=== PATIENT | female | born 1935 | race Caucasian/White ===

== ENCOUNTER 2022-01-08 10:10 | Emergency (ER) | payer MEDICARE, OTHER ==
[2022-01-08 10:16] VITALS: BP 121/68; PULSE 80; RESP 16; TEMP 97.1
[2022-01-08] MEDS ORDERED: KETOROLAC 15 MG/ML 1 ML VIAL IM STA (10:58)
--- NOTE | 2022-01-08 11:01 | ED ---
General Adult HPI - General Chief complaint: Back Pain/Injury Stated complaint: Back injury Time Seen by Provider: 01/08/22 10:50 Source: patient, RN notes reviewed, old records reviewed Mode of arrival: ambulatory Limitations: no limitations - History of Present Illness Initial comments: This is a well-appearing 86-year-old female presents ambulatory with complaints of low back pain. Patient states 2 hours ago she was backing down the stairs while dusting them and she missed the last 2 steps falling backward landing on her back. She states that the pain is like a dull ache. She does have a history of degenerative disc disease and had an x-ray on last week. She has no previous fractures. No bowel or bladder incontinence. No complaints of numbness or tingling. -: hour(s) (2) Location: back Radiation: non-radiation Severity scale (1-10): 8 Quality: aching, dull, other (tight) Consistency: constant Improves with: none Worsens with: movement (twisting movements) Treatments Prior to Arrival: none - Related Data Previous Rx's Medication Instructions Recorded Cyclobenzaprine [Flexeril] 5 mg PO TID PRN #15 tablet 01/08/22 Ibuprofen 400 mg PO Q8H PRN #30 tab 01/08/22 Lidocaine 5% Patch [Lidoderm] 1 patch TOPICAL DAILY 7 Days #7 01/08/22 patch Allergies Allergy/AdvReac Type Severity Reaction Status Date / Time No Known Allergies Allergy Verified 01/08/22 10:12 Review of Systems ROS Statement: Those systems with pertinent positive or pertinent negative responses have been documented in the HPI. ROS Other: All systems not noted in ROS Statement are negative. Past Medical History Past Medical History: No Reported History History of Any Multi-Drug Resistant Organisms: None Reported Past Surgical History: No Surgical Hx Reported Past Psychological History: No Psychological Hx Reported Smoking Status: Never smoker Past Alcohol Use History: None Reported Past Drug Use History: None Reported General Exam Limitations: no limitations General appearance: alert, in no apparent distress Head exam: Present: atraumatic Eye exam: Present: normal appearance. Absent: scleral icterus, conjunctival injection Neck exam: Present: full ROM. Absent: tenderness, meningismus Respiratory exam: Present: normal lung sounds bilaterally. Absent: respiratory distress, accessory muscle use Cardiovascular Exam: Present: regular rate, normal heart sounds Back exam: Present: normal inspection, full ROM, tenderness (Lumbar sacral spine), paraspinal tenderness (LS-spine). Absent: CVA tenderness (R), CVA tenderness (L), vertebral tenderness, rash noted Expanded Back exam: Absent: saddle anesthesia Neurological exam: Present: alert, oriented X3, normal gait Psychiatric exam: Present: normal affect, normal mood Skin exam: Present: warm, intact, normal color. Absent: rash, cyanosis, diaphoretic, petechiae, pallor Course Vital Signs 01/08/22 10:12 Temperature 97.1 F L Pulse Rate 80 Respiratory 16 Rate Blood Pressure 121/68 O2 Sat by Pulse 100 Oximetry Medical Decision Making - Medical Decision Making This is a very well-appearing active 86-year-old female. Patient stepped backwards missing 2 steps landing on her back. Patient is complaining of low back pain, paraspinal at LS-spine. X-ray shows no acute fractures. There is degenerative disc changes throughout the lumbar spine which patient is aware of and states seen on x-ray done last week by primary care. Patient was given a Toradol shot and states that she is getting much pain relief. She is ambulatory in the room with a steady gait. She was written a prescription for Lidoderm patches and Motrin. She was also given a description for Flexeril to be taken as needed and directed not to operate the vehicle or drink alcohol when taking this medication as it can cause drowsiness, fatigue and blurred vision. She is agreeable to this plan of care. Case discussed with Dr. Sebastian Disposition Clinical Impression: Musculoskeletal back pain Disposition: HOME SELF-CARE Condition: Good Instructions (If sedation given, give patient instructions): Acute Low Back Pain (ED) Additional Instructions: Take Motrin as prescribed, increase your fluid intake, and use the Lidoderm patches as prescribed for pain relief. You can use the Flexeril as needed but do not drive or operate heavy machinery or drink alcohol when taking this medication. Follow-up with the primary care doctor next week. Return to the emergency room with any new or concerning symptoms including weakness in lower extremities, or incontinence of bowel or bladder. Prescriptions: Cyclobenzaprine [Flexeril] 5 mg PO TID PRN #15 tablet PRN Reason: Muscle Spasm Ibuprofen 400 mg PO Q8H PRN #30 tab PRN Reason: Pain Lidocaine 5% Patch [Lidoderm] 1 patch TOPICAL DAILY 7 Days #7 patch Is patient prescribed a controlled substance at d/c from ED?: No Referrals: None,Stated [Primary Care Provider] - 1-2 days Time of Disposition: 11:42
--- NOTE | 2022-01-08 11:17 | XR ---
EXAMINATION TYPE: XR lumbar spine 2 or 3V DATE OF EXAM: 01/08/2022 COMPARISON: 01/05/2022 HISTORY: Fall, pain TECHNIQUE: Three-view lumbar spine FINDINGS: There are 5 lumbar-type vertebral bodies. The pedicles are intact. There is loss of disc he ight throughout the lumbar spine. This appears greatest at L2-3 and L4-5. Posterior disc space narrow ing is present L3-4 and L5-S1. Minimal superior endplate wedge deformity is present L1 and T12. No posterior wall displacement is ev ident. Alignment appears preserved. IMPRESSION: 1. Minimal superior endplate wedge deformities present previously. 2. Degenerative disc changes throughout the lumbar spine
[2022-01-08] MEDS ORDERED: LIDOCAINE 5% PATCH TOPICAL SCH (11:45)
== END 2022-01-08 11:42 | disposition home or self-care (01) ==
LOC: EC 10:10
DX: M54.50 Low back pain, unspecified (principal); W10.9XXA Fall (on) (from) unspecified stairs and steps, initial encounter
CPT/HCPCS: 72100; 99284; 96372; J1885

== ENCOUNTER 2022-03-25 12:47 | Emergency (ER) | payer MEDICARE, OTHER ==
--- NOTE | 2022-03-25 14:55 | ED ---
General Adult HPI - General Chief complaint: Recheck/Abnormal Lab/Rx Stated complaint: GI issues Time Seen by Provider: 03/25/22 14:19 Source: patient Mode of arrival: ambulatory Limitations: no limitations - History of Present Illness Initial comments: Patient is an 86-year-old female presenting with chief complaint of rectal pain. Patient states that today she felt discomfort when defecating, she also noticed a small amount of bright red blood per rectum. Patient states that she has regularly constipated, she tries to stay well-hydrated and drinking prune juice to remedy this. She denies any abdominal pain, nausea, vomiting, diarrhea, hematochezia, melena, chest pain, shortness of breath, dysuria, hematuria, urgency, frequency. - Related Data Home Medications Medication Instructions Recorded Confirmed Ezetimibe [Zetia] 10 mg PO HS 03/25/22 03/25/22 Loratadine [Claritin] 10 mg PO HS 03/25/22 03/25/22 Rosuvastatin Calcium [Crestor] 2.5 mg PO HS 03/25/22 03/25/22 amLODIPine [Norvasc] 10 mg PO HS 03/25/22 03/25/22 Allergies Allergy/AdvReac Type Severity Reaction Status Date / Time atorvastatin [From Lipitor] Allergy Anaphylaxis Verified 03/25/22 14:57 Review of Systems ROS Statement: Those systems with pertinent positive or pertinent negative responses have been documented in the HPI. ROS Other: All systems not noted in ROS Statement are negative. Past Medical History Past Medical History: Hyperlipidemia, Hypertension History of Any Multi-Drug Resistant Organisms: None Reported Past Surgical History: No Surgical Hx Reported Past Psychological History: No Psychological Hx Reported Smoking Status: Never smoker Past Alcohol Use History: Rare Past Drug Use History: None Reported General Exam Limitations: no limitations General appearance: alert, in no apparent distress Head exam: Present: atraumatic, normocephalic, normal inspection Eye exam: Present: normal appearance, EOMI. Absent: scleral icterus, periorbital swelling Neck exam: Present: normal inspection Rectal exam: Present: heme (-) stool, hemorrhoids. Absent: fecal impaction Extremities exam: Present: normal inspection Back exam: Present: normal inspection Neurological exam: Present: alert, oriented X3, CN II-XII intact Psychiatric exam: Present: normal affect, normal mood Skin exam: Present: warm, dry, intact, normal color. Absent: rash Course Vital Signs 03/25/22 03/25/22 03/25/22 12:51 14:50 15:12 Temperature 98.4 F 98 F Pulse Rate 90 75 73 Respiratory 20 18 16 Rate Blood Pressure 112/71 144/84 143/79 O2 Sat by Pulse 98 99 99 Oximetry Medical Decision Making - Medical Decision Making Patient is an 86-year-old female presenting with chief complaint of rectal pain and bright red blood per rectum. Patient states pain started today. She admits to history of constipation. On examination there is a hemorrhoid visible, digital rectal exam shows heme-negative stool and no fecal impaction. Educated the patient on supportive treatment, including sitz baths, increase fiber, hydration, MiraLAX, prune juice. Follow-up with PCP in this week. Report back to ER with any new or worsening symptoms. Discussed return parameters answered all questions. Patient conveyed verbal understanding and agreed to the plan. I discussed this case with my attending Dr. Quinones. Disposition Clinical Impression: Hemorrhoid Disposition: HOME SELF-CARE Condition: Good Instructions (If sedation given, give patient instructions): Hemorrhoids (ED) Additional Instructions: Follow-up with PCP. Report back to ER with any new or worsening symptoms. Sits baths may help relieve discomfort. Increase fiber in diet, stay well-hydrated, may utilize MiraLAX daily and prune juice. Is patient prescribed a controlled substance at d/c from ED?: No Referrals: Nonstaff,Physician [Primary Care Provider] - 1-2 days Time of Disposition: 14:55
[2022-03-25 15:13] VITALS: BP 143/79; PULSE 73; RESP 16; TEMP 98
== END 2022-03-25 15:11 | disposition home or self-care (01) ==
LOC: EC 12:47
DX: K64.9 Unspecified hemorrhoids (principal); E78.5 Hyperlipidemia, unspecified; I10 Essential (primary) hypertension; Z88.8 Allergy status to other drugs, medicaments and biological substances
CPT/HCPCS: 99283

== ENCOUNTER 2022-12-01 11:00 | Emergency (ER) | payer MEDICARE, OTHER ==
[2022-12-01] MEDS ORDERED: PROPARACAINE 0.5% OPHTH DROPS 15 ML BTL BOTH EYES STA (12:09)
[2022-12-01] MEDS ORDERED: FLUORESCEIN STRIPS 1 MG STRIP RIGHT EYE ONE (12:10)
--- NOTE | 2022-12-01 12:22 | ED ---
General Adult HPI - General Chief complaint: Eye Problems Stated complaint: Lysol [place] in Eyes Time Seen by Provider: 12/01/22 11:57 Source: patient, RN notes reviewed Mode of arrival: ambulatory Limitations: no limitations - History of Present Illness Initial comments: Patient is a pleasant 87-year-old female presenting to the emergency department following accidental eye exposure to Lysol globe cleaner. Patient states it fell and straighter in both eyes. Patient does complain of burning in both for her eyes. This occurred around 10:30 AM. Patient did rinse her eyes out with tap water. Patient states ice are feeling better at this time and symptoms are only mild. No change in vision. Discomfort is described as a mild burning sensation - Related Data Home Medications Medication Instructions Recorded Confirmed Ezetimibe [Zetia] 10 mg PO HS 03/25/22 03/25/22 Loratadine [Claritin] 10 mg PO HS 03/25/22 03/25/22 Rosuvastatin Calcium [Crestor] 2.5 mg PO HS 03/25/22 03/25/22 amLODIPine [Norvasc] 10 mg PO HS 03/25/22 03/25/22 Allergies Allergy/AdvReac Type Severity Reaction Status Date / Time atorvastatin [From Lipitor] Allergy Anaphylaxis Verified 12/01/22 11:42 Review of Systems ROS Statement: Those systems with pertinent positive or pertinent negative responses have been documented in the HPI. ROS Other: All systems not noted in ROS Statement are negative. Constitutional: Denies: fever Eyes: Reports: as per HPI, eye pain. Denies: eye discharge, vision change ENT: Denies: ear pain Respiratory: Denies: cough Cardiovascular: Denies: chest pain Endocrine: Denies: fatigue Gastrointestinal: Denies: abdominal pain Genitourinary: Denies: dysuria Musculoskeletal: Denies: back pain Skin: Denies: rash Neurological: Denies: weakness Past Medical History Past Medical History: Hyperlipidemia, Hypertension History of Any Multi-Drug Resistant Organisms: None Reported Past Surgical History: No Surgical Hx Reported Past Psychological History: No Psychological Hx Reported Smoking Status: Never smoker Past Alcohol Use History: Rare Past Drug Use History: None Reported General Exam Limitations: no limitations General appearance: alert, in no apparent distress Head exam: Present: normocephalic Eye exam: Present: PERRL, EOMI, conjunctival injection (Very mild), other (Flurosyn stain without uptake. Patient had resolution of symptoms with proparacaine) Neck exam: Present: normal inspection Respiratory exam: Present: normal lung sounds bilaterally Cardiovascular Exam: Present: regular rate, normal rhythm Extremities exam: Present: normal inspection Neurological exam: Present: alert Psychiatric exam: Present: normal affect, normal mood Skin exam: Present: normal color. Absent: rash Course Vital Signs 12/01/22 11:38 Temperature 98 F Pulse Rate 84 Respiratory 18 Rate Blood Pressure 123/60 O2 Sat by Pulse 97 Oximetry Medical Decision Making - Medical Decision Making Was pt. sent in by a medical professional or institution (, PA, CONTROL CHEMIST, urgent care, hospital, or snf...) When possible be specific @ -No Did you speak to anyone other than the patient for history (EMS, parent, family, police, friend...)? What history was obtained from this source @ -No Did you review nursing and triage notes (agree or disagree)? Why? @ -I reviewed and agree with nursing and triage notes Were old charts reviewed (outside hosp., previous admission, EMS record, old EKG, old radiological studies, urgent care reports/EKG's, snf records)? Report findings @ -No old charts were reviewed Differential Diagnosis (chest pain, altered mental status, abdominal pain women, abdominal pain men, vaginal bleeding, weakness, fever, dyspnea, syncope, headache, dizziness, GI bleed, back pain, seizure, CVA, palpatations, mental health)? @ -not applicable EKG interpreted by me (3pts min.). @ -As above X-rays interpreted by me (1pt min.). @ -None done CT interpreted by me (1pt min.). @ -None done U/S interpreted by me (1pt. min.). @ -None done What testing was considered but not performed or refused? (CT, X-rays, U/S, labs)? Why? @ -None What meds were considered but not given or refused? Why? @ -None Did you discuss the management of the patient with other professionals (professionals i.e. Dr. PA, CONTROL CHEMIST, lab, RT, psych nurse, social studies department chair, lyft driver, teacher, veterinary medical officer, family service caseworker)? Give summary @ -No Was smoking cessation discussed for >3mins.? @ -No Was critical care preformed (if so, how long)? @ -No Were there social determinants of health that impacted care today? How? (Homelessness, low income, unemployed, alcoholism, drug addiction, transp ortation, low edu. Level, literacy, decrease access to med. care, retirement, rehab)? @ -No Was there de-escalation of care discussed even if they declined (Discuss DNR or withdrawal of care, Hospice)? DNR status @ -No What co-morbidities impacted this encounter? (DM, HTN, Smoking, COPD, CAD, Cancer, CVA, ARF, Chemo, Hep., AIDS, mental health diagnosis, sleep apnea, morbid obesity)? @ -None Was patient admitted / discharged? Hospital course, mention meds given and route, prescriptions, significant lab abnormalities, going to OR and other pertinent info. @ -Patient symptom-free following proparacaine. No significant uptake with fluorescein. Pending visual acuity patient will be discharged with an medic eyedrops and tetanus immunization Undiagnosed new problem with uncertain prognosis? @ -No Drug Therapy requiring intensive monitoring for toxicity (Heparin, Nitro, Insulin, Cardizem)? @ -No Were any procedures done? @ -No Diagnosis/symptom? @ -Bilateral chemical conjunctivitis Acute, or Chronic, or Acute on Chronic? @ -Acute Uncomplicated (without systemic symptoms) or Complicated (systemic symptoms)? @ -default Side effects of treatment? @ -No Exacerbation, Progression, or Severe Exacerbation? @ -No Poses a threat to life or bodily function? How? (Chest pain, [place], NC, pneumonia, PE, COPD, DKA, ARF, appy, cholecystitis, CVA, Diverticulitis, Homicidal, Suicidal, threat to staff... and all critical care pts) @ -No Disposition Clinical Impression: Acute chemical conjunctivitis of both eyes Disposition: HOME SELF-CARE Condition: Stable Instructions (If sedation given, give patient instructions): Eye Wash (Into the eye) Additional Instructions: Use eye drops: 1 drop to each eye every 4 hours while awake for the next 3 days. Please do follow-up with primary care physician and your eye doctor in the next couple days for recheck. Return for increased eye pain, discharge, increased redness, decreased vision, worsening symptoms or other concerns. Is patient prescribed a controlled substance at d/c from ED?: No Referrals: Dayton Foy III, MD [Primary Care Provider] - 1-2 days Grady Paige MD [Family Provider] - 1-2 days Time of Disposition: 12:51
[2022-12-01] MEDS ORDERED: DIPH,PERTUS(ACELL)TETVAC-LF 0.5 ML VIAL IM ONE (12:31)
[2022-12-01] MEDS ORDERED: TOBRAMYCIN 0.3% OPHTH DROPS 5 ML BTL BOTH EYES STA (12:31)
[2022-12-01 13:22] VITALS: BP 149/75; PULSE 75; RESP 16; TEMP 98.2
== END 2022-12-01 14:07 | disposition home or self-care (01) ==
LOC: EC 11:00
DX: H10.213 Acute toxic conjunctivitis, bilateral (principal); E78.5 Hyperlipidemia, unspecified; I10 Essential (primary) hypertension; Z79.899 Other long term (current) drug therapy; Z88.8 Allergy status to other drugs, medicaments and biological substances
CPT/HCPCS: 90471; 90715; 99283

== ENCOUNTER → 2023-05-22 | Outpatient (CLI) | payer MEDICARE, OTHER ==
--- NOTE | 2023-05-22 16:06 | XR ---
EXAMINATION TYPE: XR cervical spine comp DATE OF EXAM: 05/22/2023 4:02 PM INDICATION: Patient age:Female; 87 years old; Reason for study: R29.6; H. COMPARISON: None TECHNIQUE: The cervical spine was imaged in 4 projections. Frontal, lateral, odontoid and bilateral o blique. FINDINGS: No acute fracture. Grade 1 anterolisthesis of C3 on C4 and grade 2 anterolisthesis of C4 on C5. There are osteophytes noted throughout the cervical spine on the anterior and lateral aspects of the verte bral bodies. Multilevel disc space narrowing, most pronounced at C3-C7. Pedicles are intact. Soft ti ssues are within normal limits. The odontoid appears intact. IMPRESSION: 1. No fracture or dislocation. 2. Moderate degenerative disc disease changes of the cervical spine. 3. Grade 1 anterolisthesis of C3 on C4 and grade 2 anterolisthesis of C4 on C5
== END | disposition home or self-care (01) ==
LOC: RADXRMAIN 15:41
PROVIDERS: ATTEND Nurse Practitioner Family
DX: M50.31 Other cervical disc degeneration, high cervical region (principal); M43.12 Spondylolisthesis, cervical region; R29.6 Repeated falls
CPT/HCPCS: 72050

== ENCOUNTER → 2023-05-26 | Outpatient (CLI) | payer MEDICARE, OTHER ==
--- NOTE | 2023-05-29 10:03 | MM ---
Reason for Exam: Screening (asymptomatic). Last mammogram was performed 20 year(s) and 4 month(s) ago. Patient History: Menarche at age 14. Patient has no children. Postmenopausal. Sister (Marley) had breast cancer, age 35. Niece (Leidy) had breast cancer. Risk Values: Alessandra 5 year model risk: 2.5%. NCI Lifetime model risk: 2.5%. Prior Study Comparison: 01/23/2002 Left Special View Mammogram, [facility]. 01/24/2003 Bilateral Screening Mammogram, [facility]. 02/06/2003 Left Special View Mammogram, [facility]. Tissue Density: The breast tissue is heterogeneously dense. This may lower the sensitivity of mammography. Findings: Analyzed By CAD. There is no suspicious group of microcalcifications or new suspicious mass in either breast. Overall Assessment: Benign, BI-RAD 2 Management: Screening Mammogram of both breasts in 1 year. . Patient should continue monthly self-breast exams. A clinical breast exam by your physician is recommended on an annual basis. This exam should not preclude additional follow-up of suspicious palpable abnormalities. Note on Alessandra scores and lifetime risk: 1. A Alessandra score greater than 3% is considered moderate risk. If this is the case, consider specialist referral to assess eligibility for a risk reducing agent. 2. If overall lifetime risk for the development of breast cancer is 20% or higher, the patient may qualify for future screening with alternating mammogram and breast MRI. Electronically signed and approved by: Jac Pedroza M.D. Radiologis
== END | disposition home or self-care (01) ==
LOC: RADMAMWWP 14:12
PROVIDERS: ATTEND Internal Medicine
DX: Z12.31 Encounter for screening mammogram for malignant neoplasm of breast (principal); Z78.0 Asymptomatic menopausal state; Z80.3 Family history of malignant neoplasm of breast
CPT/HCPCS: 77063; 77067

== ENCOUNTER → 2023-08-17 | Outpatient (CLI) | payer MEDICARE, OTHER ==
--- NOTE | 2023-08-17 13:32 | BD ---
EXAMINATION TYPE: Axial Bone Density DATE OF EXAM: 08/17/2023 CLINICAL HISTORY: 87 years old Female. ICD-10 CODE: M85.851 OTH DISRD OF BONE DENSITY AND STRUCTURE, R Height: 58.75" Weight: 107.8lbs FRAX RISK QUESTIONS: Alcohol (3 or more units per day): No Family History (Parent hip fracture): No Glucocorticoids (More than 3mos): No (Ex: prednisone, prednisolone, methylprednisolone, dexamethasone, and hydrocortisone). History of Fracture in Adulthood: Yes Secondary Osteoporosis: 1. Type 1 Diabetes: No 2. Hyperthyroidism: No 3. Menopause before 45: Yes 4. Malnutrition: No 5. Chronic liver disease: No Rheumatoid Arthritis: No Current Tobacco Use: No RISK FACTORS HISTORY OF: Hip Fracture (Right/Left): No Spine Fracture: No History of Wrist Fracture: No Surgery to Spine/Hip(right/left)/Wrist (right/left): Possibly surgery to L5 When: 2016 Family History of Osteoporosis: Unknown Active: Yes Diet low in dairy products/other sources of calcium: No Postmenopausal woman: Yes Lost more than 2 inches in height since high school: Yes Frequent falls: No Poor Health: No Hyperparathyroidism: No Adrenal Insufficiency: No MEDICATIONS: Prednisone or other steroids: No Thyroid Medications: No Osteoporosis Medications: No Additional Medications: Norvac, Crestor, Zedium, (prescribed after possible mini-stroke), Vitamin D, Calcium, various other supplements Additional History: N/A EXAM MEASUREMENTS: Bone mineral densitometry was performed using the [employer] System. Bone mineral density as measured about the Lumbar spine is: ----- L1-L4(G/cm2): 0.977 T Score Values are as follows: ----- L1: -3.2 ----- L2: -1.6 ----- L3: -1.9 ----- L4: -0.7 ----- L1-L4: -1.7 Z Score Values are as follows: ----- L1: -0.7 ----- L2: 0.9 ----- L3: 0.6 ----- L4: 1.8 ----- L1-L4: 0.8 Baseline @ [facility] Bone mineral density about the R hip (g/cm2): 0.906 Bone mineral density about the L hip (g/cm2): 0.921 T Score values are as follows: -----R Neck: -1.7 -----L Neck: -1.5 -----R Total: -0.8 -----L Total: -0.7 Z Score values are as follows: -----R Neck: 1.0 -----L Neck: 1.2 -----R Total: 1.9 -----L Total: 2.0 Baseline @ [facility] FRAX%s: The graph provided illustrates a 18.6% chance for a major osteoporotic fx and a 5.2% chance f or the hips probability for fx in 10 years time. IMPRESSION: Normal (Values between +1 and -1 indicate normal bone mass). Consider repeating this study in 5 year s or sooner if there is some new clinical indication. NOTE: T-SCORE=SD OF THE YOUNG ADULT MEAN.
== END | disposition home or self-care (01) ==
LOC: RADBDWWP 08:58
PROVIDERS: ATTEND Internal Medicine
DX: M81.0 Age-related osteoporosis without current pathological fracture (principal); M85.89 Other specified disorders of bone density and structure, multiple sites; Z78.0 Asymptomatic menopausal state
CPT/HCPCS: 77080

== ENCOUNTER → 2024-01-16 | Outpatient (CLI) | payer MEDICARE, OTHER ==
[2024-01-16 15:09] LABS: ALT 11 U/L (8-44); AST 25 U/L (13-35); Chol/HDL Ratio 1.93 Ratio; LDL Cholesterol,Calculated 56.5 mg/dL (0.0-131.0); VLDL Calculation 16.32 mg/dL (5.00-40.00)
== END | disposition home or self-care (01) ==
LOC: LABWHC1 08:24
PROVIDERS: ATTEND Internal Medicine
DX: E78.2 Mixed hyperlipidemia (principal)
CPT/HCPCS: 36415; 80061; 84450; 84460

== ENCOUNTER → 2024-05-29 | Outpatient (CLI) | payer MEDICARE, OTHER ==
--- NOTE | 2024-06-02 14:56 | MM ---
Reason for Exam: Screening (asymptomatic). Last screening mammogram was performed 12 month(s) ago. Patient History: Menarche at age 14. Patient has no children. Postmenopausal. Sister (Marley) had breast cancer, age 35. Niece (Leidy) had breast cancer. Prior Study Comparison: 11/26/2012 Bilateral Screening Mammogram, [facility]. 06/06/2013 Bilateral Diagnostic Mammogram, [facility]. 05/26/2023 Bilateral MG 3D screening mammo w/cad, [facility]. Tissue Density: There are scattered areas of fibroglandular density. Findings: Analyzed By CAD. The pattern is symmetrical. The pattern is stable. Some skin calcifications predominantly along the inferior breasts bilaterally. No suspicious groups of microcalcifications, spiculated or lobular masses, architectural distortion or other secondary signs of malignancy are mammographically apparent. Overall Assessment: Benign, BI-RAD 2 Management: Screening Mammogram of both breasts in 1 year. A negative mammogram report should not preclude additional follow up of suspicious palpable abnormalities. Patient should continue monthly self breast exam. A clinical breast exam by your physician is recommended on an annual basis and results should be correlated with mammographic findings. Note on Alessandra scores and lifetime risk: 1. A Alessandra score greater than 3% is considered moderate risk. If this is the case, consider specialist referral to assess eligibility for a risk reducing agent. 2. If overall lifetime risk for the development of breast cancer is 20% or higher, the patient may qualify for future screening with alternating mammogram and breast MRI. [facility], , 06/02/2024 2:53 PM. Electronically signed and approved by: Maco Buchanan D.O. Radiologis
== END | disposition home or self-care (01) ==
LOC: RADMAMWWP 08:07
PROVIDERS: ATTEND Internal Medicine
DX: Z12.31 Encounter for screening mammogram for malignant neoplasm of breast
CPT/HCPCS: 77063; 77067

== ENCOUNTER → 2024-07-23 | Outpatient (CLI) | payer MEDICARE, OTHER ==
--- NOTE | 2024-07-23 11:50 | US ---
EXAMINATION TYPE: US arterial LE single level DATE OF EXAM: 07/23/2024 8:56 AM COMPARISONS: None. CLINICAL INDICATION: Female, 88 years old with history of I73.9 PAD; Bilateral leg pain TECHNIQUE: Systolic pressures were taken of the upper and lower extremity arteries with ankle-brachia l indices and toe brachial indices calculated bilaterally. History of: Smoker: Previous Hypertension: No Diabetic: No Hyperlipidemia: Yes TIA/CVA: No Previous Vascular Surgery: No UT: No Vascular Ulcers: No Claudication: Yes Gangrene: No FINDINGS: Doppler Waveforms: Right: Multiphasic Left: Multiphasic Brachial Artery systolic pressure: Right: 144 Left: 157 Posterior Tibial artery systolic pressure: Right: 160 Left: 128 Dorsalis Pedis artery systolic pressure: Right: 155 Left: 121 Ankle-Brachial Indices: Right: 1.02 Left: 0.93 (Vessel hardening > 1.4; Normal 0.9 - 1.4, Moderate 0.7 - 0.9, Severe 0.5-0.7) IMPRESSION: Normal ankle-brachial brachial indices bilaterally. [facility], , 07/23/2024 11:47 AM
== END | disposition home or self-care (01) ==
LOC: RADUSWWP 08:18
PROVIDERS: ATTEND Internal Medicine
DX: I73.9 Peripheral vascular disease, unspecified (principal)
CPT/HCPCS: 93923

== ENCOUNTER → 2024-12-12 | Outpatient (CLI) | payer MEDICARE, OTHER ==
--- NOTE | 2024-12-12 11:24 | US ---
EXAMINATION TYPE: US carotid duplex BILAT DATE OF EXAM: 12/12/2024 COMPARISON: [facility] 2022 CLINICAL INDICATION: Female, 89 years old with history of M85.851 OSTEOPENIA RT HIP; 65.23 Additional History: I65.- Occlusion/stenosis of specified precerebral artery, specified laterality TECHNIQUE: Grayscale, color Doppler and spectral Doppler evaluation of the bilateral carotid systems and vertebral arteries. Indirect Doppler criteria was utilized. FINDINGS: EXAM MEASUREMENTS: RIGHT: Peak Systolic Velocity (PSV) cm/sec ----- Right CCA: 92.7 ----- Right ICA: 87.5 ----- Right ECA: 114.7 ICA/CCA ratio: 0.9 RIGHT: End Diastole cm/sec ----- Right CCA: 30.5 ----- Right ICA: 25.8 ----- Right ECA: 17.6 LEFT: Peak Systolic Velocity (PSV) cm/sec ----- Left CCA: 99.6 ----- Left ICA: 91.9 ----- Left ECA: 97.4 ICA/CCA ratio: 0.9 LEFT: End Diastole cm/sec ----- Left CCA: 25.9 ----- Left ICA: 33.6 ----- Left ECA: 23.7 VERTEBRALS (direction of flow): Right Vertebral: Antegrade Left Vertebral: Antegrade Rhythm: Arrhythmia on image 48 DOG RACES MANAGER NOTES: no significant stenosis, plaque, velocity elevations Color Doppler imaging shows patency with blood flow throughout the carotid artery. Spectral waveforms are within normal limits. IMPRESSION: Right: Less than 50% stenosis of the carotid bifurcation. Left: Less than 50% stenosis of the carotid bifurcation. Criteria for Assigning % of Stenosis / Diameter reduction (Estimation based on the indirect measurements of the internal carotid artery velocities (ICA PSV). 1. Normal (no stenosis)=ICA PSV < 180 cm/s: ratio < 2.0: ICA EDV<40 cm/s. 2. Less than 50% stenosis=ICA PSV < 180 cm/s: ratio < 2.0: ICA EDV<40 cm/s. 3. 50 to 69% stenosis=ICA PSV of 180 to 230 cm/s: ration 2.0 ? 4.0: ICA EDV 40-100 cm/s. PSV 125-180 cm/sec and ICA/CCA PSV Ratio ? 2.0 is also consistent with 50-69% stenosis 4. Greater than 70% stenosis to near occlusion= ICA PSV > 230 cm/s: ratio > 4.0: ICA EDV > 100 cm/s. 5. Near occlusion= ICA PSV velocities may be low or undetectable: variable ratio and ICA EDV. 6. Total occlusion=unable to detect flow. [facility], , 12/12/2024 11:22 AM
--- NOTE | 2024-12-12 16:42 | CA ---
Transthoracic Echo Report Name: Lindsay Juarez Age: 89 Gender: F : 1935 Exam Date: 12/12/2024 11:22 Exam Location: [facility] Ht (in): 60 Wt (lb): 105 Ordering Physician: Radha Kc MD Attending/Referring Phys: Rat Farmer Ricky Garcia RDCS Procedure CPT: Indications: i35.0 Cardiac Hx: Technical Quality: Good Contrast 1: Total Dose (mL): Contrast 2: Total Dose (mL): MEASUREMENTS (Male / Female) Normal Values 2D ECHO LV Diastolic Diameter PLAX 4.2 cm 4.2 - 5.9 / 3.9 - 5.3 cm LV Systolic Diameter PLAX 2.9 cm IVS Diastolic Thickness 0.7 cm 0.6 - 1.0 / 0.6 - 0.9 cm LVPW Diastolic Thickness 0.8 cm 0.6 - 1.0 / 0.6 - 0.9 cm LV Relative Wall Thickness 0.4 RV Internal Dim ED PLAX 3.3 cm LVOT Diameter 1.9 cm LA Systolic Diameter LX 3.6 cm 3.0 - 4.0 / 2.7 - 3.8 cm LV Diastolic Volume MOD BP 88.4 cm??? 67 - 155 / 56 - 104 cm??? LV Systolic Volume MOD BP 41.3 cm??? 22 - 58 / 19 - 49 cm??? LV Ejection Fraction MOD BP 53.3 % >= 55 % LV Diastolic Volume MOD 4C 91.0 cm??? LV Systolic Volume MOD 4C 43.4 cm??? LV Ejection Fraction MOD 4C 52.4 % LV Diastolic Length 4C 8.0 cm LV Systolic Length 4C 6.3 cm LV Diastolic Volume MOD 2C 83.6 cm??? LV Systolic Volume MOD 2C 38.0 cm??? LV Ejection Fraction MOD 2C 54.5 % LV Diastolic Length 2C 7.7 cm LV Systolic Length 2C 6.0 cm LA Volume 54.0 cm??? 18 - 58 / 22 - 52 cm??? LA Volume Index 38.0 cm???/m??? 16 - 28 cm???/m??? DOPPLER AI Peak Velocity 350.2 cm/s AI Peak Gradient 49.1 mmHg AI Pressure Half Time 624.7 ms MV Area PHT 3.8 cm??? Mitral E Point Velocity 80.1 cm/s Mitral A Point Velocity 88.1 cm/s Mitral E to A Ratio 0.9 MV Deceleration Time 201.5 ms TR Peak Velocity 226.6 cm/s TR Peak Gradient 20.5 mmHg Right Atrial Pressure 10.0 mmHg Pulmonary Artery Systolic Pressu 30.5 mmHg Right Ventricular Systolic Press 30.5 mmHg FINDINGS Left Ventricle Left ventricular ejection fraction is estimated at 50-55%. Normal Left ventricular size, wall thickness, systolic function with no obvious regional wall motion abnormalities. Right Ventricle Normal right ventricular size and function. Right ventricular systolic pressure within normal limits. Right Atrium Normal right atrial size. Left Atrium Mildly increased left atrial volume. Mitral Valve Mitral valve thickened. No mitral stenosis. Mild to moderate mitral regurgitation. Aortic Valve Trileaflet aortic valve. Aortic valve sclerosis. No aortic stenosis. Mild aortic regurgitation. Tricuspid Valve Structurally normal tricuspid valve. No tricuspid regurgitation. Mild tricuspid regurgitation. Pulmonic Valve Structurally normal pulmonic valve. No pulmonic stenosis. Trace pulmonic regurgitation. Pericardium No pericardial or pleural effusion. Aorta Normal size aortic root and proximal ascending aorta. CONCLUSIONS Indication: Mitral valve disease Normal LV size and function Mildly thickened mitral leaflets with mild to moderate mitral regurgitation. No stenosis Previewed by: Dr. Les Yost MD (Electronically Signed) Final Date: 12 December 2024 16:41
== END | disposition home or self-care (01) ==
LOC: RADUSWWP 10:37
PROVIDERS: ATTEND Internal Medicine
DX: I65.23 Occlusion and stenosis of bilateral carotid arteries (principal); I34.0 Nonrheumatic mitral (valve) insufficiency; M85.851 Other specified disorders of bone density and structure, right thigh
CPT/HCPCS: 93306; 93880

== ENCOUNTER → 2025-02-19 | Outpatient (CLI) | payer MEDICARE, OTHER ==
--- NOTE | 2025-02-19 23:19 | CT ---
EXAMINATION TYPE: CT brain wo con DATE OF EXAM: 02/19/2025 8:36 AM COMPARISON: 10/17/2022 CLINICAL INDICATION: Female, 89 years old with history of R41.3 OTHER AMNESIA, Memory issues TECHNIQUE: CT of the brain is performed utilizing 3 mm thick sections through the posterior fossa and 3 mm thick sections through the remaining calvarium. Study is performed within 24 hours of arrival to the hospital. Contrast used: mL of , (none if empty) CT DLP: 1260 mGycm, Automated exposure control for dose reduction was used. FINDINGS: No abnormal hyperdensity is present to suggest an acute intracranial hemorrhage. No mass lesion is evident. No acute infarcts are evident. Patchy periventricular white matter hypodensity is present, likely on the basis of chronic white matter ischemic change. Ventricles and sulci are mildly prominent for the patient age. Paranasal sinuses and mastoid air cells within the [id number] are clear. IMPRESSION: 1. No acute intracranial process. Follow up MRI can be performed as clinically indicated. 2. Patchy chronic appearing periventricular white matter ischemic-type change and atrophy [facility], , 02/19/2025 11:16 PM
== END | disposition home or self-care (01) ==
LOC: RADCTMAIN 08:09
PROVIDERS: ATTEND Internal Medicine
DX: I67.82 Cerebral ischemia (principal); R41.3 Other amnesia; G31.9 Degenerative disease of nervous system, unspecified
CPT/HCPCS: 70450